=== PATIENT | female | born 1985 | race Caucasian/White ===

== ENCOUNTER 2016-09-27 06:50 | Inpatient (IN) | payer BC ==
[~2016-09-27] VITALS: Ht 160 cm; Wt 101.0 kg
[~2016-09-27 06:50] MED LIST: AMOXICILLIN500 MG PO; ASPIR 8181 M1 PO; BIAXIN500 MG PO; CELEXA20 MG PO; CLONAZEPAM1 MG PO; DOCUSATE SODIU100 MG PO; ENDOCET 5-3251 EACH PO; FOLGARD1 TABLET PO; FOLIC ACID1 MG PO; GABAPENTIN100 MG PO; IBUPROFEN200 M1 PO; IBUPROFEN800 MG PO; PRENATAL VITAM1 EA11 PO; PROTONIX40 MG PO; VITAFOL-OB+DHA1 EACH PO
[2016-09-27 07:25] VITALS: BP 137/87
[2016-09-27 13:00] VITALS: BP 125/72
[2016-09-27 14:00] VITALS: BP 120/71
[2016-09-27 16:11] VITALS: BP 128/68
[2016-09-27 17:09] VITALS: BP 122/61
[2016-09-27] MEDS ORDERED: IBUPROFEN800 MG PO (19:00)
[2016-09-27] MEDS ORDERED: ENDOCET 5-3251 EACH PO (19:00)
[2016-09-27 22:29] VITALS: BP 124/70
[2016-09-28 03:53] VITALS: BP 113/74
[2016-09-28 07:00] VITALS: BP 127/79
[2016-09-28 07:36] LABS: EOSINOPHIL (%) 0.1 % (0-5); HEMATOCRIT 23.8 % (36.0-46.0); IMMATURE GRANULOCYTE (%) 1.1 % (0.0-0.7); IMMATURE GRANULOCYTE COUNT 0.2 K/uL; INSTRUMENT ABS NEUTROPHIL CT 10.1 K/uL; LYMPHOCYTE COUNT 2.2 K/uL (1.0-2.8); MCH 23.2 PG (29.0-34.0); MCHC 30.7 G/DL (30.0-36.0); MCV 75.8 FL (83-99); MONOCYTE (%) 10.6 % (3-12); MONOCYTE COUNT 1.5 K/uL (0-0.8); NEUTROPHIL (%) 72.3 % (45-76); NEUTROPHIL COUNT 10.1 K/uL (1.8-6.4); PLATELET COUNT 147 K/uL (156-360); RBC DIS.WIDTH-CV 17.5 % (11.8-14.6); RBC DIS.WIDTH-SD 47.7 % (39-53)
[2016-09-28 07:49] LABS: RED BLOOD COUNT 3.14 M/uL (3.80-5.20)
[2016-09-28 15:05] VITALS: BP 106/58
[2016-09-28 19:01] VITALS: BP 122/72
[2016-09-28 23:17] VITALS: BP 109/65
[2016-09-29 03:07] VITALS: BP 124/70
[2016-09-29 07:05] VITALS: BP 100/68
[2016-09-29 11:05] VITALS: BP 121/74
[2016-09-29] MEDS ORDERED: CHROMAGEN SOFT1 EACH PO (16:18)
== END 2016-09-29 14:15 | disposition home or self-care (01) | DRG 766 ==
LOC: 2WEST 06:50 → 2SOUTH 09:35 → 2WEST 09-29 14:15
PROVIDERS: Obstetrics & Gynecology
PROC: 10D00Z1 Extraction of Products of Conception, Low, Open Approach (ICD-10-PCS; principal; 2016-09-27)
DX: O34.211 Maternal care for low transverse scar from previous cesarean delivery (principal); N85.8 Other specified noninflammatory disorders of uterus; O99.214 Obesity complicating childbirth; E66.9 Obesity, unspecified; O99.344 Other mental disorders complicating childbirth; F41.9 Anxiety disorder, unspecified; Z3A.39 39 weeks gestation of pregnancy; Z37.0 Single live birth
CPT/HCPCS: 36415; 85025; 86850; 86900; 86901; J0690; J1100; J1170; J2274; J2405; J2765; J3010; J7120

== ENCOUNTER → 2017-04-13 | Outpatient (CLI) | payer BC ==
[~2017-04-13] MED LIST changes: +CHROMAGEN SOFT1 EACH PO
== END | disposition home or self-care (01) ==
DX: R13.11 Dysphagia, oral phase (principal); R13.13 Dysphagia, pharyngeal phase; R11.0 Nausea
CPT/HCPCS: 92611 GN